=== PATIENT | male | born 1985 | race Caucasian/White ===

== ENCOUNTER 2017-09-27 00:19 | Emergency (ER) | payer BC ==
[~2017-09-27] VITALS: Ht 172.7 cm; Wt 107.5 kg
[2017-09-27 00:25] VITALS: Ht 172.7 cm; Wt 107.5 kg
[2017-09-27 00:52] LABS: BASOPHIL % 0.3 % (0-2); PLATELET COUNT 245 x10^3mcL (130-400); RED CELL DISTRIBUTION WIDTH 13.4 % (11.5-14.5)
[2017-09-27 01:00] LABS: CARBON DIOXIDE 28.4 mmol/L (21-32); CHLORIDE SERUM 99 mmol/L (98-107); CREATININE SERUM 0.9 mg/dL (0.7-1.3); GFR1 > 60 mL/min; GLUCOSE SERUM 149 mg/dL (74-106); POTASSIUM SERUM 3.2 mmol/L (3.5-5.1); SODIUM SERUM 135 mmol/L (136-145)
[2017-09-27 01:15] LABS: ALBUMIN 3.9 g/dL (3.4-5.0); ALKALINE PHOSPHATASE 65 U/L (46-116); ALT/SGPT 47 U/L (16-63); AST/SGOT 35 U/L (15-37); BILIRUBIN TOTAL 0.37 mg/dL (0.20-1.00); MAGNESIUM 1.8 mg/dL (1.8-2.4); TOTAL PROTEIN, SERUM 7.8 g/dL (6.4-8.2)
[2017-09-27 02:55] LABS: AMPHETAMINE QUAL UR NONE DETECTED (NEG <=1000)
[2017-09-27 05:20] VITALS: BP 125/75
== END 2017-09-27 05:20 | disposition home or self-care (01) ==
LOC: ED 00:19
PROVIDERS: Emergency Medicine
DX: R07.9 Chest pain, unspecified (principal); R00.2 Palpitations; R94.31 Abnormal electrocardiogram [ECG] [EKG]; I10 Essential (primary) hypertension
CPT/HCPCS: 85378; J7030; Q0092